=== PATIENT | female | born 1960 | race Native Hawaiian/Other Pacific Islander ===

== ENCOUNTER 2018-04-12 12:05 | Emergency (ER) | payer OTHER ==
[2018-04-12 12:19] VITALS: RESP 18
--- NOTE | 2018-04-12 13:35 | XR ---
Right shoulder HISTORY: Pain 3 views of the right shoulder Bone mineralization, joint spaces and alignment are maintained. Right lung apex as visualized is norm al. No fracture or dislocation. IMPRESSION: No acute abnormality.
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
[2018-04-12] MEDS ORDERED: KETOROLAC 60 MG/2 ML VIAL IM STA (13:42)
[2018-04-12] MEDS ORDERED: CYCLOBENZAPRINE 10MG STARTER 3 TAB BTL PO STA (13:42)
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
[2018-04-12 14:16] VITALS: BP 176/71; PULSE 63; TEMP 98
== END 2018-04-12 14:15 | disposition home or self-care (01) ==
LOC: EC 12:05
DX: S16.1XXA Strain of muscle, fascia and tendon at neck level, initial encounter (principal); S43.401A Unspecified sprain of right shoulder joint, initial encounter; R51 Headache; F17.200 Nicotine dependence, unspecified, uncomplicated; V89.2XXA Person injured in unspecified motor-vehicle accident, traffic, initial encounter; Y92.410 Unspecified street and highway as the place of occurrence of the external cause
CPT/HCPCS: 73030; 72125; 70450; 99284; 96372; J1885